=== PATIENT | male | born 2000 | race Caucasian/White ===

== ENCOUNTER 2019-08-09 15:18 | Outpatient (CLI) | payer OTHER ==
[~2019-08-09 15:18] MED LIST: Gadobenate Dimeglumine 529 MG/1 ML (20ML VIAL) ONE
--- NOTE | 2019-08-09 16:32 | MRI ---
MRI Brain W WO Con: 08/09/2019 12:00 AM CLINICAL HISTORY: Asymmetric sensorineural hearing loss. COMPARISON: None. FINDINGS: Extra axial spaces: Normal in size and morphology for the patient's age. Acute infarction: None. Ventricular system: Normal in size and morphology for the patient's age. Basal cisterns: Normal. Cerebral parenchyma: Normal. Midline shift: None. Cerebellum: Normal. Brainstem: Normal. Paranasal sinuses:Scattered mucosal thickening. Intraaxial Enhancement: None CerebelloPontine Angle Cisterns: No mass or pathologic enhancement. IMPRESSION: No mass or pathologic enhancement of either CP angle cistern. No acute intracranial abnormality.
== END 2019-08-09 15:19 | disposition home or self-care (01) ==
LOC: BICMRI 15:18
PROVIDERS: ATTEND Student in an Organized Health Care Education/Training Program
DX: H90.5 Unspecified sensorineural hearing loss (principal)
CPT/HCPCS: 70553; A9577